=== PATIENT | male | born 1990 | race Caucasian/White ===

== ENCOUNTER 2024-04-02 10:25 | Emergency (ER) | payer MEDICAID ==
[~2024-04-02] VITALS: Ht 167.6 cm; Wt 68.1 kg
[~2024-04-02 10:25] MED LIST: NORPTMEDS CO
[2024-04-02 11:03] LABS: Eosinophils # (auto) 0.1 10 ^3/uL (0-0.8)
[2024-04-02 11:05] LABS: Basophils # (auto) 0.1 10 ^3/uL (0-0.2); Basophils % (auto) 0.6 % (0.0-2.0); Eosinophils % (auto) 0.6 % (0.0-7.0); Hematocrit 45.1 % (41.0-53.0); Lymphocytes # (auto) 1.9 10 ^3/uL (0.4-5.4); Lymphocytes % (auto) 17.6 % (10.0-50.0); Mean Corpuscular Hemoglobin 24.7 pg (28.0-32.0); Mean Corpuscular Hgb Conc. 33.3 g/dL (32.0-36.0); Mean Corpuscular Volume 74.3 fL (80.0-100.0); Monocytes # (auto) 0.7 10 ^3/uL (0-1.3); Monocytes % (auto) 6.4 % (0.0-12.0); Neutrophils % (auto) 74.8 % (37.0-80.0); Nucleated Red Blood Cells % 0.1 %; Platelet Count (auto) 365 10^3/uL (140-450); Red Blood Cells 6.08 10^6/uL (4.5-5.90); Red Cell Distribution Width 16.2 % (11.8-14.3); White Blood Cell 10.7 10^3/uL (4.4-10.8)
[2024-04-02] MEDS ORDERED: ZOFR4T PO (11:06)
[2024-04-02 11:22] LABS: Chloride 108 mmol/L (98-107); Potassium 4.5 mmol/L (3.5-5.1); Sodium 139 mmol/L (136-145)
[2024-04-02 11:23] LABS: Anion Gap 4 (5-15); Calcium 9.9 mg/dL (8.7-10.4); Carbon Dioxide 27 mmol/L (20-31)
[2024-04-02 11:28] LABS: BUN/Creatinine Ratio 12.8 (10.0-20.0); Blood Urea Nitrogen 10 mg/dL (9-23); Glucose 116 mg/dL (74-106)
[2024-04-02] MEDS: DONNATAL 5ml ORAL Elix (BELLADONNA ALK-PHENOBARB) PO ONE (11:33)
[2024-04-02] MEDS: LIDOCAINE VISCOUS 2% 15ML UD PO ONE (11:33)
[2024-04-02] MEDS: MAALOX PLUS or MAALOX 30 ML PO ONE (11:33)
[2024-04-02 11:38] VITALS: PULSE 76; RESP 16; O2SAT 97
[2024-04-02 13:42] VITALS: BP 131/92; PULSE 65; RESP 16; O2SAT 95
[2024-04-10] MEDS ORDERED: CLOZ50TA4 PO (21:13)
[2024-04-11] MEDS ORDERED: HYDR1CAP27 PO (03:18)
== END 2024-04-02 15:17 | disposition home or self-care (01) ==
LOC: EDBD 10:25 → ER 10:25
DX: K29.00 Acute gastritis without bleeding (principal); F17.210 Nicotine dependence, cigarettes, uncomplicated
CPT/HCPCS: 36415; 80048; 85025; 93005